=== PATIENT | male | born 1970 | race Caucasian/White ===

== ENCOUNTER 2021-05-06 20:27 | Inpatient (IN) | payer SELFPAY ==
[~2021-05-06] VITALS: Ht 188 cm; Wt 149.7 kg
[2021-05-06 21:49] LABS: ALBUMIN 2.2 g/dL (3.5-5.0); ALBUMIN/GLOBULIN RATIO 0.7 (0.8-2.0); CALCIUM 7.6 mg/dL (8.4-10.2); CREATININE, SERUM 0.75 mg/dL (0.72-1.25)
[2021-05-06 21:53] LABS: BASOPHILS % 0.8 % (0.0-1.0); EOSINOPHILS # (AUTO) 0.2 (0.0-0.4); EOSINOPHILS % 4.1 % (0.0-6.0); HEMATOCRIT 27.7 % (38.2-49.6); HEMOGLOBIN 9.7 g/dL (14.0-18.0); LYMPHOCYTES # (AUTO) 0.7 (1.0-3.2); LYMPHOCYTES % 17.4 % (18.0-39.1); MEAN CORPUSCULAR HEMOGLOBIN 35.8 pg (28-32); MEAN CORPUSCULAR VOLUME 102.2 fL (81-99); MONOCYTES # (AUTO) 0.5 (0.2-0.8); MONOCYTES % 13.3 % (4.4-11.3); NEUTROPHILS # (AUTO) 2.5 (2.1-6.9); NEUTROPHILS % 64.1 % (38.7-80.0); PLATELET COUNT 171 x10e3/uL (140-360); RED BLOOD COUNT 2.71 x10e6/uL (4.3-5.7); RED CELL DISTRIBUTION WIDTH 15.9 % (11.7-14.4)
[2021-05-06] MEDS ORDERED: SODIUM CHLORIDE 0.9% 50ML 50 ML ONE (22:05)
[2021-05-06] MEDS ORDERED: IOPAMIDOL 370 MG/ML 200 ML INFUS..BTL INJ ONE (22:06)
[2021-05-07] MEDS ORDERED: DEXTROSE 50% SYRINGE 50 ML IV PRN (01:15)
[2021-05-07] MEDS ORDERED: ALBUTEROL/IPRATROPIUM 3 ML NEB NEB PRN (01:15)
[2021-05-07] MEDS ORDERED: BENZONATATE 100 MG CAP PO PRN (01:15)
[2021-05-07] MEDS ORDERED: DIPHENHYDRAMINE HCL 25 MG CAP PO PRN (01:15)
[2021-05-07] MEDS ORDERED: MELATONIN 5 MG TABLET PO PRN (01:15)
[2021-05-07] MEDS ORDERED: ONDANSETRON HCL INJ 2MG/ML 2ML 2 MG/ML VIAL IV PRN (01:15)
[2021-05-07] MEDS ORDERED: POTASSIUM CHLORIDE 20 MEQ TAB CR PO PRN (01:15)
[2021-05-07] MEDS ORDERED: HYDRALAZINE HCL 20 MG/ML VIAL IV PRN (01:15)
[2021-05-07] MEDS ORDERED: SIMETHICONE 80 MG CHEW PO PRN (01:15)
[2021-05-07] MEDS ORDERED: LIDOCAINE 4% PATCH TP PRN (01:15)
[2021-05-07] MEDS ORDERED: DOCUSATE SODIUM 100 MG CAP PO PRN (01:15)
[2021-05-07 02:34] LABS: AMPHETAMINES SCREEN,URINE NEGATIVE (NEGATIVE); BENZODIAZEPINES SCREEN,URINE NEGATIVE (NEGATIVE); CLARITY,URINE CLEAR (CLEAR); COLOR,URINE YELLOW (YELLOW); KETONES,URINE NEGATIVE (NEGATIVE); LEUKOCYTE ESTERASE ,URINE NEGATIVE (NEGATIVE); NITRITE,URINE NEGATIVE (NEGATIVE); PHENCYCLIDINE SCREEN,URINE NEGATIVE (NEGATIVE); PROTEIN,URINE DIPSTICK NEGATIVE (NEGATIVE); URINE UROBILINOGEN 1 mg/dL (0.2 - 1)
[2021-05-07 02:38] LABS: BACTERIA,URINE FEW /HPF; EPITHELIAL CELLS,URINE RARE /LPF; WBC,URINE (MAN) 0-5 /HPF (0-5)
[2021-05-07 06:02] LABS: BASOPHILS % 0.9 % (0.0-1.0); EOSINOPHILS # (AUTO) 0.2 (0.0-0.4); EOSINOPHILS % 6.5 % (0.0-6.0); HEMATOCRIT 26.9 % (38.2-49.6); HEMOGLOBIN 9.2 g/dL (14.0-18.0); LYMPHOCYTES # (AUTO) 0.9 (1.0-3.2); LYMPHOCYTES % 24.1 % (18.0-39.1); MEAN CORPUSCULAR HEMOGLOBIN 35.1 pg (28-32); MEAN CORPUSCULAR HGB CONC 34.2 g/dL (31-35); MEAN CORPUSCULAR VOLUME 102.7 fL (81-99); MONOCYTES # (AUTO) 0.6 (0.2-0.8); MONOCYTES % 16.8 % (4.4-11.3); NEUTROPHILS # (AUTO) 1.8 (2.1-6.9); NEUTROPHILS % 51.1 % (38.7-80.0); PLATELET COUNT 153 x10e3/uL (140-360); RED BLOOD COUNT 2.62 x10e6/uL (4.3-5.7); RED CELL DISTRIBUTION WIDTH 15.7 % (11.7-14.4)
[2021-05-07 06:40] LABS: ALBUMIN/GLOBULIN RATIO 0.7 (0.8-2.0); ANION GAP 12.6 mmol/L (8-16); CALCIUM 7.4 mg/dL (8.4-10.2); CREATININE, SERUM 0.74 mg/dL (0.72-1.25); POTASSIUM 4.6 mmol/L (3.5-5.1)
[2021-05-07 06:42] LABS: MAGNESIUM 2.1 MG/DL (1.3-2.1); PHOSPHORUS 3.6 MG/DL (2.3-4.7)
[2021-05-07 07:03] LABS: THYROID STIMULATING HORMONE 2.729 uIU/mL (0.350-4.940)
[2021-05-07] MEDS: PANTOPRAZOLE SOD 40 MG TABEC PO SCH (10:42)
[2021-05-07 13:11] VITALS: BP 121/72
[2021-05-07 13:35] VITALS: BP 121/72
[2021-05-07] MEDS ORDERED: ALBUMIN 25% 25GM 100ML 0.25 GM/ML BTL IV ONE (15:00)
[2021-05-07] MEDS ORDERED: CHLORDIAZEPOXIDE HCL 25 MG CAP PO PRN (15:00)
[2021-05-07] MEDS ORDERED: ALBUMIN 25% 12.5GM 50ML 100 ML IV ONE (15:15)
[2021-05-07 15:30] LABS: INR 1.36
[2021-05-07] MEDS: THIAMINE HCL INJ 100 MG in SODIUM CHLORIDE 0.9% 50ML 50 ML IV SCH (15:42)
[2021-05-07 16:50] VITALS: BP 101/63
[2021-05-07 20:00] VITALS: BP 95/51
[2021-05-07 20:49] VITALS: BP 101/63
[2021-05-08] VITALS (10 sets, daily range): BP systolic 91–118; BP diastolic 47–76
[2021-05-08] MEDS: TRAMADOL HCL 50 MG TAB PO PRN ×3 (00:22→15:42)
[2021-05-08] MEDS: PANTOPRAZOLE SOD 40 MG TABEC PO SCH (08:15)
[2021-05-08] MEDS: THIAMINE HCL INJ 100 MG in SODIUM CHLORIDE 0.9% 50ML 50 ML IV SCH (10:25)
[2021-05-08] MEDS ORDERED: CASIRIVIMAB/IMDEVIMAB 10 ML in SODIUM CHLORIDE 0.9% 100 ML IV ONE (11:30)
[2021-05-08 12:50] LABS: EOSINOPHILS # (AUTO) 0.2 (0.0-0.4); EOSINOPHILS % 5.9 % (0.0-6.0); HEMATOCRIT 25.8 % (38.2-49.6); HEMOGLOBIN 8.8 g/dL (14.0-18.0); LYMPHOCYTES # (AUTO) 1.1 (1.0-3.2); LYMPHOCYTES % 37.4 % (18.0-39.1); MEAN CORPUSCULAR HEMOGLOBIN 35.8 pg (28-32); MEAN CORPUSCULAR HGB CONC 34.1 g/dL (31-35); MEAN CORPUSCULAR VOLUME 104.9 fL (81-99); MONOCYTES # (AUTO) 0.4 (0.2-0.8); MONOCYTES % 14.5 % (4.4-11.3); NEUTROPHILS # (AUTO) 1.2 (2.1-6.9); NEUTROPHILS % 40.9 % (38.7-80.0); PLATELET COUNT 114 x10e3/uL (140-360); RED BLOOD COUNT 2.46 x10e6/uL (4.3-5.7); RED CELL DISTRIBUTION WIDTH 15.8 % (11.7-14.4)
[2021-05-08 13:07] LABS: ANION GAP 9.4 mmol/L (8-16); CALCIUM 7.1 mg/dL (8.4-10.2); CREATININE, SERUM 0.66 mg/dL (0.72-1.25); POTASSIUM 4.4 mmol/L (3.5-5.1)
[2021-05-08] MEDS ORDERED: ALBUMIN 25% 12.5GM 50ML 200 ML IV ONE (13:54)
[2021-05-08] MEDS ORDERED: LORAZEPAM INJ 2 MG/ML VIAL IV ONE (14:30)
[2021-05-08] MEDS ORDERED: LOPERAMIDE HCL 2 MG CAP PO ONE (14:30)
[2021-05-08] MEDS: SODIUM CHLORIDE 1 GM TAB PO SCH ×2 (15:26→21:01)
[2021-05-08 16:54] LABS: EOSINOPHILS % (MANUAL) 13 % (0-7); LYMPHOCYTES % (MANUAL) 16 % (19-48); MONOCYTES % (MANUAL) 7 % (3.4-9.0); NEUTROPHILS % (MANUAL) 59 % (40-74); PLATELET ESTIMATE ADEQUATE; PLATELET MORPHOLOGY COMMENT NORMAL; RBC MORPHOLOGY COMMENT NORMAL
[2021-05-09] VITALS (8 sets, daily range): BP systolic 87–124; BP diastolic 51–82
[2021-05-09 02:56] LABS: BODY FLUID APPEARANCE SL.CLOUDY; BODY FLUID COLOR YELLOW; BODY FLUID TYPE PERITONEAL; RBC,BODY FLUID 0 cells/uL; WBC,BODY FLUID 51 cells/uL
[2021-05-09 03:16] LABS: LYMPHOCYTES,BODY FLUID 28 %; NEUTROPHILS,BODY FLUID 22 %
[2021-05-09 05:06] LABS: BASOPHILS % 0.9 % (0.0-1.0); EOSINOPHILS # (AUTO) 0.1 (0.0-0.4); EOSINOPHILS % 1.5 % (0.0-6.0); HEMATOCRIT 27.5 % (38.2-49.6); HEMOGLOBIN 9.3 g/dL (14.0-18.0); LYMPHOCYTES # (AUTO) 1.5 (1.0-3.2); LYMPHOCYTES % 31.7 % (18.0-39.1); MEAN CORPUSCULAR HEMOGLOBIN 35.5 pg (28-32); MEAN CORPUSCULAR HGB CONC 33.8 g/dL (31-35); MONOCYTES # (AUTO) 0.4 (0.2-0.8); NEUTROPHILS # (AUTO) 2.6 (2.1-6.9); NEUTROPHILS % 56.7 % (38.7-80.0); PLATELET COUNT 91 x10e3/uL (140-360); RED BLOOD COUNT 2.62 x10e6/uL (4.3-5.7); RED CELL DISTRIBUTION WIDTH 15.9 % (11.7-14.4)
[2021-05-09 05:27] LABS: CALCIUM 7.3 mg/dL (8.4-10.2); CREATININE, SERUM 0.67 mg/dL (0.72-1.25)
[2021-05-09 05:44] LABS: IRON 15 ug/dL (65-175); TRANSFERRIN < 70 mg/dL (174-364)
[2021-05-09] MEDS: TRAMADOL HCL 50 MG TAB PO PRN (08:49)
[2021-05-09] MEDS: SODIUM CHLORIDE 1 GM TAB PO SCH (08:49)
[2021-05-09] MEDS: THIAMINE HCL INJ 100 MG in SODIUM CHLORIDE 0.9% 50ML 50 ML IV SCH ×2 (08:49→11:29)
[2021-05-09] MEDS: PANTOPRAZOLE SOD 40 MG TABEC PO SCH ×2 (08:49→11:28)
[2021-05-09] MEDS: SPIRONOLACTONE 25 MG TAB PO SCH ×2 (08:49→11:29)
[2021-05-09] MEDS: FUROSEMIDE 40 MG TAB PO SCH ×2 (08:49→11:29)
[2021-05-09] MEDS ORDERED: SODIUM CHLORIDE 0.9% 1000ML 1,000 ML IV ONE (13:00)
[2021-05-09] MEDS: MIDODRINE HCL 5 MG TABLET PO SCH ×2 (13:01→17:59)
[2021-05-09] MEDS ORDERED: FOLIC ACID 1 MG TAB PO ONE (22:45)
[2021-05-10] VITALS (9 sets, daily range): BP systolic 104–127; BP diastolic 63–72
[2021-05-10 05:28] LABS: BASOPHILS # (AUTO) 0.1 (0.0-0.1); BASOPHILS % 1.4 % (0.0-1.0); EOSINOPHILS # (AUTO) 0.3 (0.0-0.4); EOSINOPHILS % 7.5 % (0.0-6.0); HEMATOCRIT 27.3 % (38.2-49.6); HEMOGLOBIN 9.2 g/dL (14.0-18.0); LYMPHOCYTES # (AUTO) 1.6 (1.0-3.2); LYMPHOCYTES % 44.6 % (18.0-39.1); MEAN CORPUSCULAR HEMOGLOBIN 35.2 pg (28-32); MEAN CORPUSCULAR HGB CONC 33.7 g/dL (31-35); MEAN CORPUSCULAR VOLUME 104.6 fL (81-99); MONOCYTES # (AUTO) 0.3 (0.2-0.8); MONOCYTES % 8.9 % (4.4-11.3); NEUTROPHILS # (AUTO) 1.3 (2.1-6.9); PLATELET COUNT 66 x10e3/uL (140-360); RED BLOOD COUNT 2.61 x10e6/uL (4.3-5.7); RED CELL DISTRIBUTION WIDTH 15.8 % (11.7-14.4)
[2021-05-10 05:46] LABS: ALBUMIN 1.8 g/dL (3.5-5.0); ALBUMIN/GLOBULIN RATIO 0.9 (0.8-2.0); ANION GAP 10.8 mmol/L (8-16); CREATININE, SERUM 0.57 mg/dL (0.72-1.25); POTASSIUM 3.8 mmol/L (3.5-5.1)
[2021-05-10 05:49] LABS: CALCIUM 6.9 mg/dL (8.4-10.2)
[2021-05-10] MEDS ORDERED: CALCIUM GLUCONATE 10% INJ 9.3 MEQ in SODIUM CHLORIDE 0.9% 100 ML 100 ML IV ONE (08:00)
[2021-05-10] MEDS: FOLIC ACID 1 MG TAB PO SCH (09:33)
[2021-05-10] MEDS: MIDODRINE HCL 5 MG TABLET PO SCH ×3 (09:33→16:52)
[2021-05-10] MEDS: IRON SUCROSE 100 MG in SODIUM CHLORIDE 0.9% 100 ML 100 ML IV SCH (09:33)
[2021-05-10 10:22] LABS: BAND NEUTROPHILS % (MANUAL) 1 %; LYMPHOCYTES % (MANUAL) 20 % (19-48); MONOCYTES % (MANUAL) 7 % (3.4-9.0); NEUTROPHILS % (MANUAL) 71 % (40-74)
[2021-05-10 10:23] LABS: PLATELET MORPHOLOGY COMMENT NORMAL
[2021-05-10 10:24] LABS: ANISOCYTOSIS SLIGHT; PLATELET ESTIMATE SLIGHTLY DECREASED; RBC MORPHOLOGY COMMENT ABNORMAL
[2021-05-11] VITALS: BP 132/72
[2021-05-11 04:00] VITALS: BP 115/65
[2021-05-11] MEDS ORDERED: FUROSEMIDE 40 MG TAB PO SCH (06:00)
[2021-05-11 06:23] LABS: ANION GAP 13.3 mmol/L (8-16); CALCIUM 7.1 mg/dL (8.4-10.2); CREATININE, SERUM 0.63 mg/dL (0.72-1.25); POTASSIUM 4.3 mmol/L (3.5-5.1)
[2021-05-11 08:00] VITALS: BP 113/68
[2021-05-11] MEDS: PANTOPRAZOLE SOD 40 MG TABEC PO SCH (08:21)
[2021-05-11] MEDS: THIAMINE HCL INJ 100 MG in SODIUM CHLORIDE 0.9% 50ML 50 ML IV SCH (08:21)
[2021-05-11] MEDS: FOLIC ACID 1 MG TAB PO SCH (08:21)
[2021-05-11] MEDS: MIDODRINE HCL 5 MG TABLET PO SCH (08:21)
[2021-05-11] MEDS ORDERED: SPIRONOLACTONE 25 MG TAB PO SCH (09:00)
[2021-05-11] MEDS: IRON SUCROSE 100 MG in SODIUM CHLORIDE 0.9% 100 ML 100 ML IV SCH (09:01)
[2021-05-11 09:18] VITALS: BP 113/68
[2021-05-11 09:38] LABS: BASOPHILS % 0.8 % (0.0-1.0); EOSINOPHILS # (AUTO) 0.2 (0.0-0.4); EOSINOPHILS % 5.8 % (0.0-6.0); HEMATOCRIT 29.5 % (38.2-49.6); HEMOGLOBIN 10.1 g/dL (14.0-18.0); LYMPHOCYTES # (AUTO) 1.6 (1.0-3.2); LYMPHOCYTES % 41.5 % (18.0-39.1); MEAN CORPUSCULAR HEMOGLOBIN 35.8 pg (28-32); MEAN CORPUSCULAR HGB CONC 34.2 g/dL (31-35); MEAN CORPUSCULAR VOLUME 104.6 fL (81-99); MONOCYTES # (AUTO) 0.4 (0.2-0.8); MONOCYTES % 9.1 % (4.4-11.3); NEUTROPHILS # (AUTO) 1.7 (2.1-6.9); NEUTROPHILS % 42.3 % (38.7-80.0); PLATELET COUNT 61 x10e3/uL (140-360); RED BLOOD COUNT 2.82 x10e6/uL (4.3-5.7); RED CELL DISTRIBUTION WIDTH 15.3 % (11.7-14.4)
[2021-05-11 11:37] LABS: EOSINOPHILS % (MANUAL) 2 % (0-7); LYMPHOCYTES % (MANUAL) 29 % (19-48); MONOCYTES % (MANUAL) 3 % (3.4-9.0); NEUTROPHILS % (MANUAL) 65 % (40-74); NUCLEATED RED BLOOD CELLS 3
[2021-05-11 11:38] LABS: PLATELET ESTIMATE SLIGHTLY DECREASED; PLATELET MORPHOLOGY COMMENT NORMAL; RBC MORPHOLOGY COMMENT NORMAL
[2021-05-11 12:00] VITALS: BP 123/79
[2021-05-11] MEDS ORDERED: ONDANSETRON HCL 4 MG ORAL DISINTEGRATING TAB PO PRN (12:45)
[2021-05-11] MEDS ORDERED: FOLIC ACID0.4 MG PO (14:16)
[2021-05-11] MEDS ORDERED: VITAMIN B-1100 M1 PO (14:17)
[2021-05-11] MEDS ORDERED: LASIX40 MG PO (14:18)
[2021-05-11] MEDS ORDERED: ALDACTONE25 MG PO (14:19)
[2021-05-12] MEDS ORDERED: THIAMINE HCL 100 MG TAB PO SCH (09:00)
== END 2021-05-11 15:05 | disposition home or self-care (01) | DRG 432 ==
LOC: ER 20:31 → ERHOLD 23:13 → OBSVTOIN 05-07 12:31 → IMCU 05-07 13:00
PROVIDERS: ADMIT Internal Medicine; ATTEND Internal Medicine
PROC: 0W9G3ZZ Drainage of Peritoneal Cavity, Percutaneous Approach (ICD-10-PCS; principal; 2021-05-08)
DX: K70.31 Alcoholic cirrhosis of liver with ascites (principal); U07.1 COVID-19; J12.82 Pneumonia due to coronavirus disease 2019; F10.288 Alcohol dependence with other alcohol-induced disorder; Z68.41 Body mass index [BMI] 40.0-44.9, adult; E87.1 Hypo-osmolality and hyponatremia; Y90.9 Presence of alcohol in blood, level not specified; Z91.81 History of falling; R60.0 Localized edema; E66.01 Morbid (severe) obesity due to excess calories
CPT/HCPCS: 36415; 49083; 71045; 72132; 72193; 74470; 80048; 80053; 80307; 81001; 82105; 82140; 82607; 82746; 83540; 83735; 84100; 84157; 84295; 84443; 84466; 85025; 85045; 85610; 87070; 87116; 87205; 87206; 88112; 88305; 89051; 93005; 97139; 99284; C1729; G0378; J0610; J1756; J3411; J7030; J7050; Q9967; U0002

== ENCOUNTER 2021-05-21 13:47 | Emergency (ER) | payer SELFPAY ==
[~2021-05-21] VITALS: Ht 188 cm; Wt 149.7 kg
[~2021-05-21 13:47] MED LIST: ALDACTONE25 MG PO; FOLIC ACID0.4 MG PO; LASIX40 MG PO; VITAMIN B-1100 M1 PO
== END 2021-05-21 18:27 | disposition home or self-care (01) ==
LOC: ER 13:55
DX: R18.8 Other ascites (principal); K74.60 Unspecified cirrhosis of liver; F17.210 Nicotine dependence, cigarettes, uncomplicated
CPT/HCPCS: 99283

== ENCOUNTER 2021-06-05 11:10 | Observation (INO) | payer SELFPAY ==
[2021-06-05] VITALS (7 sets, daily range): BP systolic 111–117; BP diastolic 63–72
[~2021-06-05] VITALS: Ht 188 cm; Wt 149.7 kg
[2021-06-05 11:39] LABS: BASOPHILS # (AUTO) 0.1 (0.0-0.1); BASOPHILS % 0.7 % (0.0-1.0); EOSINOPHILS # (AUTO) 0.1 (0.0-0.4); EOSINOPHILS % 1.5 % (0.0-6.0); HEMOGLOBIN 9.5 g/dL (14.0-18.0); LYMPHOCYTES # (AUTO) 1.5 (1.0-3.2); LYMPHOCYTES % 18.4 % (18.0-39.1); MEAN CORPUSCULAR HEMOGLOBIN 33.9 pg (28-32); MEAN CORPUSCULAR HGB CONC 32.8 g/dL (31-35); MEAN CORPUSCULAR VOLUME 103.6 fL (81-99); MONOCYTES # (AUTO) 0.5 (0.2-0.8); MONOCYTES % 6.6 % (4.4-11.3); NEUTROPHILS % 72.2 % (38.7-80.0); PLATELET COUNT 157 x10e3/uL (140-360); RED CELL DISTRIBUTION WIDTH 14.6 % (11.7-14.4)
[2021-06-05 12:03] LABS: ALBUMIN 2.1 g/dL (3.5-5.0); ALBUMIN/GLOBULIN RATIO 0.7 (0.8-2.0); CALCIUM 7.4 mg/dL (8.4-10.2); CREATININE, SERUM 0.75 mg/dL (0.72-1.25)
[2021-06-05 12:09] LABS: CREATINE KINASE MB 2.7 ng/mL (0-5.0)
[2021-06-05 12:28] LABS: INR 1.3; PROTHROMBIN TIME 16.4 seconds (11.9-14.5)
[2021-06-05 12:29] LABS: PARTIAL THROMBOPLASTIN TIME 35.4 seconds (23.8-35.5)
[2021-06-05] MEDS ORDERED: ONDANSETRON HCL INJ 2MG/ML 2ML 2 MG/ML VIAL IV PRN (14:15)
[2021-06-05] MEDS ORDERED: ALBUMIN 25% 12.5GM 50ML 200 ML IV ONE (14:33)
[2021-06-05] MEDS ORDERED: ALBUMIN 25% 12.5GM 50ML 100 ML IV ONE (15:45)
[2021-06-05] MEDS ORDERED: water pill (17:41)
[2021-06-05] MEDS ORDERED: B12 ACTIVE1000 MCG (17:41)
[2021-06-06 00:29] VITALS: BP 109/55
[2021-06-06 04:30] VITALS: BP 106/63
[2021-06-06 04:59] LABS: BASOPHILS % 0.7 % (0.0-1.0); EOSINOPHILS # (AUTO) 0.2 (0.0-0.4); EOSINOPHILS % 4.1 % (0.0-6.0); HEMATOCRIT 25.2 % (38.2-49.6); HEMOGLOBIN 8.7 g/dL (14.0-18.0); LYMPHOCYTES # (AUTO) 1.7 (1.0-3.2); LYMPHOCYTES % 29.6 % (18.0-39.1); MEAN CORPUSCULAR HEMOGLOBIN 33.5 pg (28-32); MEAN CORPUSCULAR HGB CONC 34.5 g/dL (31-35); MEAN CORPUSCULAR VOLUME 96.9 fL (81-99); MONOCYTES # (AUTO) 0.5 (0.2-0.8); MONOCYTES % 9.2 % (4.4-11.3); NEUTROPHILS # (AUTO) 3.1 (2.1-6.9); PLATELET COUNT 122 x10e3/uL (140-360); RED CELL DISTRIBUTION WIDTH 14.5 % (11.7-14.4)
[2021-06-06 05:20] LABS: ALBUMIN 2.3 g/dL (3.5-5.0); ALBUMIN/GLOBULIN RATIO 1.1 (0.8-2.0); ANION GAP 8.7 mmol/L (8-16); CALCIUM 7.2 mg/dL (8.4-10.2); CREATININE, SERUM 0.67 mg/dL (0.72-1.25); POTASSIUM 3.7 mmol/L (3.5-5.1)
== END 2021-06-06 08:40 | disposition home or self-care (01) ==
LOC: ER 11:19 → ERHOLD 14:12 → IMCU 16:19
PROVIDERS: ADMIT Internal Medicine; ATTEND Internal Medicine
DX: K74.60 Unspecified cirrhosis of liver (principal); R18.8 Other ascites; D64.9 Anemia, unspecified; U07.1 COVID-19; E66.01 Morbid (severe) obesity due to excess calories; Z68.41 Body mass index [BMI] 40.0-44.9, adult; Z20.822 Contact with and (suspected) exposure to COVID-19
CPT/HCPCS: 36415 ×2; 49083; 71045; 74470; 80053 ×2; 80320; 82550; 82553; 83880; 84484; 85025 ×2; 85610; 85730; 99284; G0378 ×2; U0002

== ENCOUNTER 2021-06-22 09:51 | Inpatient (IN) | payer SELFPAY ==
[~2021-06-22] VITALS: Ht 188 cm; Wt 154.2 kg
[~2021-06-22 09:51] MED LIST changes: +B12 ACTIVE1000 MCG; +water pill
[2021-06-22 10:35] LABS: BASOPHILS % 0.6 % (0.0-1.0); EOSINOPHILS # (AUTO) 0.1 (0.0-0.4); HEMATOCRIT 28.8 % (38.2-49.6); HEMOGLOBIN 9.7 g/dL (14.0-18.0); LYMPHOCYTES # (AUTO) 1.4 (1.0-3.2); LYMPHOCYTES % 20.6 % (18.0-39.1); MEAN CORPUSCULAR HEMOGLOBIN 32.9 pg (28-32); MEAN CORPUSCULAR HGB CONC 33.7 g/dL (31-35); MEAN CORPUSCULAR VOLUME 97.6 fL (81-99); MONOCYTES # (AUTO) 0.5 (0.2-0.8); MONOCYTES % 7.6 % (4.4-11.3); NEUTROPHILS # (AUTO) 4.7 (2.1-6.9); NEUTROPHILS % 69.8 % (38.7-80.0); PLATELET COUNT 194 x10e3/uL (140-360); RED BLOOD COUNT 2.95 x10e6/uL (4.3-5.7); RED CELL DISTRIBUTION WIDTH 14.8 % (11.7-14.4)
[2021-06-22 10:55] LABS: ALBUMIN 2.4 g/dL (3.5-5.0); ALBUMIN/GLOBULIN RATIO 0.8 (0.8-2.0); ANION GAP 11.1 mmol/L (8-16); CALCIUM 7.6 mg/dL (8.4-10.2); CREATININE, SERUM 0.82 mg/dL (0.72-1.25); POTASSIUM 4.1 mmol/L (3.5-5.1)
[2021-06-22 11:06] LABS: INR 1.23
[2021-06-22 11:07] LABS: PARTIAL THROMBOPLASTIN TIME 33.4 seconds (23.8-35.5)
[2021-06-22 12:48] VITALS: BP 131/115
[2021-06-22] MEDS ORDERED: ALBUMIN 25% 12.5GM 50ML 100 ML IV ONE ×2 (14:27→14:44)
[2021-06-22 16:58] LABS: BODY FLUID APPEARANCE CLOUDY; BODY FLUID COLOR YELLOW; BODY FLUID TYPE PERITONEAL; RBC,BODY FLUID < 2000 cells/uL; WBC,BODY FLUID 57 cells/uL
[2021-06-22] MEDS: FAMOTIDINE 20 MG TAB PO SCH (16:59)
[2021-06-22 18:50] LABS: LYMPHOCYTES,BODY FLUID 47 %; MONO/MACROPHG,BODY FLUID 12 %; NEUTROPHILS,BODY FLUID 9 %; OTHER CELLS,BODY FLUID 32 %
[2021-06-22 20:00] VITALS: BP 117/68
[2021-06-22 21:00] VITALS: BP 117/68
[2021-06-23] VITALS: BP 115/74
[2021-06-23 04:00] VITALS: BP 114/68
[2021-06-23 05:19] LABS: BASOPHILS # (AUTO) 0.1 (0.0-0.1); BASOPHILS % 1.1 % (0.0-1.0); EOSINOPHILS # (AUTO) 0.3 (0.0-0.4); EOSINOPHILS % 6.1 % (0.0-6.0); HEMATOCRIT 26.1 % (38.2-49.6); HEMOGLOBIN 8.9 g/dL (14.0-18.0); LYMPHOCYTES # (AUTO) 1.3 (1.0-3.2); LYMPHOCYTES % 23.8 % (18.0-39.1); MEAN CORPUSCULAR HEMOGLOBIN 32.7 pg (28-32); MEAN CORPUSCULAR HGB CONC 34.1 g/dL (31-35); MONOCYTES # (AUTO) 0.6 (0.2-0.8); MONOCYTES % 11.6 % (4.4-11.3); NEUTROPHILS # (AUTO) 3.1 (2.1-6.9); PLATELET COUNT 155 x10e3/uL (140-360); RED BLOOD COUNT 2.72 x10e6/uL (4.3-5.7); RED CELL DISTRIBUTION WIDTH 14.6 % (11.7-14.4)
[2021-06-23 05:37] LABS: ALBUMIN 2.4 g/dL (3.5-5.0); ALBUMIN/GLOBULIN RATIO 1.1 (0.8-2.0); CALCIUM 7.4 mg/dL (8.4-10.2); CREATININE, SERUM 0.71 mg/dL (0.72-1.25)
[2021-06-23 08:00] VITALS: BP 137/79
[2021-06-23 08:07] VITALS: BP 137/79
[2021-06-23] MEDS: FAMOTIDINE 20 MG TAB PO SCH (08:23)
[2021-06-23] MEDS ORDERED: SPIRONOLACTONE 25 MG TAB PO SCH (09:00)
[2021-06-23] MEDS ORDERED: FUROSEMIDE 40 MG TAB PO SCH (09:00)
[2021-06-23] MEDS ORDERED: LASIX40 MG PO ×2 (11:06→11:46)
[2021-06-23 11:53] VITALS: BP 137/87
== END 2021-06-23 13:26 | disposition home or self-care (01) | DRG 434 ==
LOC: ER 09:54 → ERHOLD 11:48 → MED/SURG2 13:04
PROVIDERS: ADMIT Internal Medicine; ATTEND Internal Medicine
PROC: 0W9G3ZZ Drainage of Peritoneal Cavity, Percutaneous Approach (ICD-10-PCS; principal; 2021-06-22)
DX: K70.31 Alcoholic cirrhosis of liver with ascites (principal); D63.8 Anemia in other chronic diseases classified elsewhere; Z20.822 Contact with and (suspected) exposure to COVID-19; F10.10 Alcohol abuse, uncomplicated
CPT/HCPCS: 36415; 49083; 71045; 74470; 80053; 84157; 85025; 85610; 85730; 87070; 87205; 88112; 88305; 89051; 93005; 99284; C1729; U0002

== ENCOUNTER 2021-07-12 09:39 | Observation (INO) | payer SELFPAY ==
[~2021-07-12] VITALS: Ht 188 cm; Wt 158.8 kg
[2021-07-12 10:39] LABS: BASOPHILS # (AUTO) 0.1 (0.0-0.1); BASOPHILS % 1.2 % (0.0-1.0); EOSINOPHILS # (AUTO) 0.2 (0.0-0.4); EOSINOPHILS % 3.7 % (0.0-6.0); HEMATOCRIT 27.6 % (38.2-49.6); HEMOGLOBIN 9.2 g/dL (14.0-18.0); LYMPHOCYTES # (AUTO) 1.5 (1.0-3.2); LYMPHOCYTES % 24.6 % (18.0-39.1); MEAN CORPUSCULAR HEMOGLOBIN 31.5 pg (28-32); MEAN CORPUSCULAR HGB CONC 33.3 g/dL (31-35); MEAN CORPUSCULAR VOLUME 94.5 fL (81-99); MONOCYTES # (AUTO) 0.5 (0.2-0.8); MONOCYTES % 8.3 % (4.4-11.3); NEUTROPHILS # (AUTO) 3.7 (2.1-6.9); PLATELET COUNT 178 x10e3/uL (140-360); RED BLOOD COUNT 2.92 x10e6/uL (4.3-5.7); RED CELL DISTRIBUTION WIDTH 15.5 % (11.7-14.4)
[2021-07-12 11:07] LABS: INR 1.15; PROTHROMBIN TIME 15.6 seconds (11.9-14.5)
[2021-07-12 11:08] LABS: ALBUMIN 2.2 g/dL (3.5-5.0); ALBUMIN/GLOBULIN RATIO 0.7 (0.8-2.0); ANION GAP 12.8 mmol/L (8-16); CALCIUM 7.5 mg/dL (8.4-10.2); CREATININE, SERUM 0.81 mg/dL (0.72-1.25); MAGNESIUM 1.8 MG/DL (1.3-2.1)
[2021-07-12 11:10] LABS: POTASSIUM 2.8 mmol/L (3.5-5.1)
[2021-07-12 11:15] LABS: CREATINE KINASE MB 2.4 ng/mL (0-5.0)
[2021-07-12] MEDS ORDERED: ALBUTEROL/IPRATROPIUM 3 ML NEB NEB ONE (11:30)
[2021-07-12] MEDS ORDERED: POTASSIUM CHLORIDE 20 MEQ TAB CR PO STA (11:37)
[2021-07-12 14:02] VITALS: BP 124/82
[2021-07-12] MEDS ORDERED: POTASSIUM CHLORIDE 20 MEQ TAB CR PO ONE (14:45)
[2021-07-12] MEDS: ALBUTEROL/IPRATROPIUM 3 ML NEB NEB SCH ×3 (16:00→23:00)
[2021-07-12 16:33] VITALS: BP 120/79
[2021-07-12] MEDS: SPIRONOLACTONE 25 MG TAB PO SCH (17:16)
[2021-07-12] MEDS: FUROSEMIDE 20 MG TAB PO SCH (17:17)
[2021-07-12 20:00] VITALS: BP 103/56
[2021-07-12 22:29] VITALS: BP 103/56
[2021-07-12] MEDS ORDERED: ACETAMINOPHEN 325 MG TAB PO PRN (23:15)
[2021-07-12] MEDS ORDERED: ONDANSETRON HCL INJ 2MG/ML 2ML 2 MG/ML VIAL IV PRN (23:15)
[2021-07-13] MEDS: ALBUTEROL/IPRATROPIUM 3 ML NEB NEB SCH ×4 (03:00→15:18)
[2021-07-13 04:00] VITALS: BP 108/68
[2021-07-13 05:15] LABS: BASOPHILS # (AUTO) 0.1 (0.0-0.1); BASOPHILS % 1.2 % (0.0-1.0); EOSINOPHILS # (AUTO) 0.3 (0.0-0.4); EOSINOPHILS % 5.5 % (0.0-6.0); HEMATOCRIT 25.8 % (38.2-49.6); HEMOGLOBIN 8.6 g/dL (14.0-18.0); LYMPHOCYTES # (AUTO) 1.7 (1.0-3.2); MEAN CORPUSCULAR HEMOGLOBIN 31.2 pg (28-32); MEAN CORPUSCULAR HGB CONC 33.3 g/dL (31-35); MEAN CORPUSCULAR VOLUME 93.5 fL (81-99); MONOCYTES # (AUTO) 0.5 (0.2-0.8); MONOCYTES % 9.6 % (4.4-11.3); NEUTROPHILS # (AUTO) 2.9 (2.1-6.9); NEUTROPHILS % 52.5 % (38.7-80.0); PLATELET COUNT 168 x10e3/uL (140-360); RED BLOOD COUNT 2.76 x10e6/uL (4.3-5.7); RED CELL DISTRIBUTION WIDTH 15.9 % (11.7-14.4)
[2021-07-13 05:45] LABS: ALBUMIN 1.9 g/dL (3.5-5.0); ALBUMIN/GLOBULIN RATIO 0.7 (0.8-2.0); ANION GAP 11.3 mmol/L (8-16); CALCIUM 7.3 mg/dL (8.4-10.2); CREATININE, SERUM 0.74 mg/dL (0.72-1.25); POTASSIUM 3.3 mmol/L (3.5-5.1)
[2021-07-13 06:12] LABS: MAGNESIUM 1.8 MG/DL (1.3-2.1)
[2021-07-13] MEDS: FUROSEMIDE 20 MG TAB PO SCH ×2 (06:42→17:30)
[2021-07-13 08:00] VITALS: BP 127/75
[2021-07-13 08:10] VITALS: BP 127/75
[2021-07-13] MEDS: SPIRONOLACTONE 25 MG TAB PO SCH ×2 (09:00→17:00)
[2021-07-13] MEDS: FAMOTIDINE 20 MG TAB PO SCH ×2 (09:00→12:00)
[2021-07-13] MEDS ORDERED: ALBUMIN 25% 12.5GM 50ML 200 ML IV ONE (09:46)
[2021-07-13] MEDS ORDERED: ALBUMIN 25% 12.5GM 50ML 100 ML IV ONE (10:34)
[2021-07-13 12:00] VITALS: BP 121/61
[2021-07-13] MEDS ORDERED: ALBUTEROL SULFATE HFA 8GM INHALATION AEROSOL INH PRN (12:00)
[2021-07-13 12:09] LABS: WBC,BODY FLUID 44 cells/uL
[2021-07-13 12:10] LABS: RBC,BODY FLUID < 200 cells/uL
[2021-07-13 12:47] LABS: BODY FLUID APPEARANCE CLOUDY; BODY FLUID COLOR STRAW; BODY FLUID TYPE PERITONEAL; LYMPHOCYTES,BODY FLUID 24 %; MONO/MACROPHG,BODY FLUID 36 %; NEUTROPHILS,BODY FLUID 9 %
[2021-07-13 12:48] LABS: OTHER CELLS,BODY FLUID 31 %
[2021-07-13 15:27] VITALS: BP 106/68
[2021-07-13] MEDS ORDERED: FUROSEMIDE20 MG PO (16:51)
[2021-07-13] MEDS ORDERED: ALDACTONE25 MG PO (16:51)
[2021-07-13] MEDS ORDERED: ACETAMINOPHEN325 M1 PO (16:51)
[2021-07-13] MEDS ORDERED: VENTOLIN HFA18 GM INH (16:51)
[2021-07-13] MEDS ORDERED: ONDANSETRON HCL 4 MG ORAL DISINTEGRATING TAB PO PRN (18:00)
== END 2021-07-13 17:52 | disposition home or self-care (01) ==
LOC: ER 09:59 → ERHOLD 12:31 → MED/SURG 13:28
PROVIDERS: ADMIT Internal Medicine; ATTEND Internal Medicine
DX: K70.31 Alcoholic cirrhosis of liver with ascites (principal); E87.6 Hypokalemia; J44.9 Chronic obstructive pulmonary disease, unspecified; Z82.49 Family history of ischemic heart disease and other diseases of the circulatory system; Z82.5 Family history of asthma and other chronic lower respiratory diseases; E87.1 Hypo-osmolality and hyponatremia; D63.8 Anemia in other chronic diseases classified elsewhere; F10.21 Alcohol dependence, in remission; Z20.822 Contact with and (suspected) exposure to COVID-19
CPT/HCPCS: 36415 ×2; 49083 ×2; 71045; 74470; 76705; 80053 ×2; 80061; 82550; 82553; 83036; 83735 ×2; 84157; 84484; 85025 ×2; 85610; 85730; 87070; 87205; 88112; 88305; 89051; 93005; 93970; 94640 ×3; 97116; 97161; 97530; 99251; 99284; G0378 ×2; U0002; 94799

== ENCOUNTER 2021-08-08 11:46 | Emergency (ER) | payer MEDICAID ==
[~2021-08-08] VITALS: Ht 188 cm; Wt 158.8 kg
[~2021-08-08 11:46] MED LIST changes: +ACETAMINOPHEN325 M1 PO; +FUROSEMIDE20 MG PO; +VENTOLIN HFA18 GM INH
== END 2021-08-08 12:26 | disposition home or self-care (01) ==
LOC: ER 11:56
DX: R18.8 Other ascites (principal); K74.60 Unspecified cirrhosis of liver
CPT/HCPCS: 99282